=== PATIENT | male | born 1985 | race Caucasian/White ===

== ENCOUNTER 2021-03-01 08:00 | Outpatient (RCR) | payer OTHER, SELFPAY ==
--- NOTE | 2021-01-01 13:17 | PTOPEVAL ---
INITIAL PHYSICAL THERAPY EVALUATION and PLAN OF CARE Thank you for referring Rafael Cardona to [facility].? Rfaael is scheduled to be seen for physical therapy? 2x/week for [id number]/wk x 2 wks. Please review, sign, date and return this plan of care SOCORRO. I agree with and certify that the following plan of care is medically necessary. Referring Physician Date Admitting Provider: Attending Provider: Flower Casiano DO Referring Provider: DARBY Outpatient Evaluation Start: 01/01/21 10:11 Freq: Status: Active Protocol: Document 01/01/21 10:09 HARIS (Rec: 01/01/21 11:16 HARIS [id number]) Therapy Assessment Status Assessment Status Assessment Status Evaluation Outpatient Past Medical History Past Medical History Source of Past Medical History Patient Musculoskeletal History Hx Fractures Yes: L clavicle fractured at Evaluation Information Problem Diagnosis cervicalgia Onset July 2019 Subjective Information Initially would have nerve Query Text:As Reported By Patient/ type pain into L UE - triceps Family region - viewed You Tube video on how to floss nerve - those symptoms went away. Then later had discomfort into pectoralis, also into posterior scapular muscles. Now in the mornings - will have dull sensation around shoulder region - at times feels like shoulder is weak with trying to lift arm in abduction. Some days doesn't have any pain. Able to swim, lift weights without problems. No loss of strength or sensation. Diagnostic Tests X-Rays For This Problem Yes Prior Level of Function Activity Level (Last 3 Months) Occupation master craftsman Hand Dominance Right Medications Home Meds (Include: OTC, RX, Vitamins, denies any medication Herbals, Dose, Route,and Frequency) Query Text:Home Med Entries Will No Longer Recall From Past Visits. Home Meds Must Be Re-entered With Each Visit. Comments Additional Prior Level of Function recreation - read, languages - Comments study, occasional video games , exercising - has had to slow down to the L shoulder pain Pain Assessment Timing of Pain Assessment Timing of Pain Assessment Assessment Pain Scale Pain Scale Used
--- NOTE | 2021-01-20 12:18 | PTOPEVAL ---
PHYSICAL THERAPY RE-EVALUATION and UPDATED PLAN OF CARE Thank you for referring Rafael Cardona to [facility].? Rafael has done well in PT, but he is still having cervical dysfunction in regards to reduced L side bending as compared with R motion and occasional L shoulder discomfort. He wishes to continue with PT, and I am in agreement, once every other week for 2-3 more appointments. Please review, sign, date and return this plan of care SOCORRO. I agree with and certify that the following plan of care is medically necessary. Referring Physician Date Admitting Provider: Attending Provider: Flower Casiano DO Referring Provider: Therapy Assessment Status Assessment Status Assessment Status Re-evaluation Evaluation Information Problem Diagnosis cervicalgia Subjective Information Rafael reports neck feeling Query Text:As Reported By Patient/ okay. Occasional L anterior Family pectoralis/chest pain, also into L latissimus region - which is present after sleeping L side. He will also have occasional L scapular discomfort after increased physical activity. Pain Assessment Timing of Pain Assessment Timing of Pain Assessment Assessment Pain Scale Pain Scale Used Numeric (1 - 10) Self Report Pain Assessment Left Shoulder(s) Reported Pain Level 0 Lowest Pain Intensity 0 Greatest Pain Intensity 1 Cervical and Lumbar ROM Cervical ROM Cervical Flexion (0-60) 60 Query Text:Active in Degrees Cervical Extension (0-70) 65 Query Text:Active in Degrees Cervical Lateral Flexion Right (0-50) 45 Query Text:Active in Degrees Cervical Lateral Flexion Left (0-50) 35 Query Text:Active in Degrees Cervical Rotation Right (0-90) 72 Query Text:Active in Degrees Cervical Rotation Left (0-90) 74 Query Text:Active in Degrees Upper Extremity Range of Motion General Upper Extremity Range of Motion Gross Upper Extremity Range of Motion Active shoulder flexion, Comments abduction - symmetrical and WNL symmetrical scapulohumeral rhythm continues In supine - symmetrical ER and IR ROM Cervical and Lumbar Muscle Testing Cervical Muscle Testing Deep Cervical Flexion 52 sec PT Clinical Summary Clinical Summary Protocol: PTEVCODE PT Clinical Summary Neck Disability Index - 2% Rafael is making progress in PT - cervical ROM has increased in all directions except L side bending - still
--- NOTE | 2021-03-01 14:59 | PTOPEVAL ---
PHYSICAL THERAPY DISCHARGE SUMMARY Thank you for referring Rafael Cardona to [facility].? Rafael has been seen x 8 visits. He is doing well - cervical AROM is WNL with symmetrical side bending, improved spinal segmental mobility, very occasional L shoulder symptoms, increase with postural awareness with work activities, and independence with HEP. He is ready for d/c from PT. I agree with Rafael's discharge from PT. Referring Physician Date Admitting Provider: Attending Provider: Flower Casiano DO Referring Provider: Therapy Assessment Status Assessment Status Assessment Status Discharge Evaluation Information Problem Diagnosis cervicalgia Subjective Information Rafael reports that he did Query Text:As Reported By Patient/ well on his vacation, plane, Family carrying luggage, etc. On rare occasions will still have some L shoulder discomfort - anteriorly in pectoralis and along L scapular border. Lying on left side is going okay - will have some discomfort. Discussed how to sleep more comfortably on left side. Pain Assessment Timing of Pain Assessment Timing of Pain Assessment Pre-Treatment Self Report Self Report Pain Level 0 Cervical and Lumbar ROM Cervical ROM Cervical Flexion (0-60) 60 Query Text:Active in Degrees Cervical Extension (0-70) 65 Query Text:Active in Degrees Cervical Lateral Flexion Right (0-50) 45 Query Text:Active in Degrees Cervical Lateral Flexion Left (0-50) 50 Query Text:Active in Degrees Cervical Rotation Right (0-90) 72 Query Text:Active in Degrees Cervical Rotation Left (0-90) 74 Query Text:Active in Degrees Cervical and Lumbar Muscle Testing Cervical Muscle Testing Deep Cervical Flexion 1:18.06 Upper Extremity Muscle Strength Testing General Upper Extremity Strength Gross Upper Extremity Strength Comments L g-h jt - 90 deg ER, ~85 deg IR Palpation Assessment Palpation Palpation mild L anterior displacement with L humeral head as compared to R - but scapular levels are symmetrical mild decreased mobility with P -A glides C7 most restricted, lateral glides very slight decreased mobility C3 right to left symmetrical SC jt mobility, good L g-h jt capsular mobility PARAG C
== END 2021-03-02 15:19 | disposition home or self-care (01) ==
LOC: ANHHIPT 08:00
PROVIDERS: PCP Family Medicine; Visit Provider Family Medicine
DX: M54.2 Cervicalgia (principal)
CPT/HCPCS: 97110; 97140; 97162

== ENCOUNTER 2024-09-16 07:56 | Outpatient (CLI) | payer OTHER, SELFPAY ==
--- OUTSIDE RECORDS SUMMARY | 2024-09-16 08:02 | XMS_ITS | Clinical Summary ---
Author Organization [facility] Address Formerly [facility] [place] [address] Care Team Providers Care Improvement Leader Name Role Phone Luis Eduardo Kenny MD Primary Care Provider Bandar martinez Encounters Date Type Department Care Team Description 07/24/2024 7:44 AM SALON SUPERVISOR - 07/24/2024 11:59 PM SALON SUPERVISOR Hospital Encounter [facility] [place] [address] [place] [address] Jessica Hernandez FNP Discharge Disposition: Home or Self Care (Routine Discharge) 07/24/2024 Travel from Last 3 Months Immunizations Immunization Administration Dates Next Due MODERNA COVID-19 (12+) MRNA, LNP-S, PF, 100 MCG/ 0.5 ML DOSE 09/08/2020,08/11/2020 Social History Tobacco Use Types Packs/Day Years Used Date Smoking Tobacco: Never Assessed Sex and Gender Information Value Date Recorded Sex Assigned at Not on file Legal Sex Male 11:33 AM CDT Gender Identity Not on file Sexual Orientation Not on file Plan of Treatment Health Maintenance Due Date Last Done Comments Annual Physical 1989 Hepatitis C 2004 DTaP, Tdap and Td Vaccines ( 1 - Tdap) 2005 Hepatitis B Vaccines (1 of 3 - 19+ 3-dose series) 2005 COVID-19 Vaccine (2023-2 5 season) 2024 09/08/2020, 08/11/2020 HPV Vaccines Aged Out No longer eligi ble based on patient's age to complete this topic Meningococcal B Vaccine Aged Out No l onger eligible based on patient's age to complete this topic Meningococcal Vaccine Aged Out No karen kaity eligible based on patient's age to complete this topic Pneumococcal Vaccine: Pediatrics (0 to 5 Years) and At-Risk Patients (6 to 49 Years) Aged Out No longer eligible b ased on patient's age to complete this topic RSV Immunizations Under 20 Months Aged Out No longer eligible b ased on patient's age to complete this topic Procedures Procedure Name Priority Date/Time Associated Diagnosis Comments MRI BRAIN WO CON Routine 07/24/2024 8:54 AM SALON SUPERVISOR Right-sided tinnitus from Last 3 Months Results * MRI BRAIN WO CON (07/24/2024 8:54 AM SALON SUPERVISOR) Anatomical Region Laterality Modality Head Magnetic Resonan ce 07/25/2024 10:5 5 AM SALON SUPERVISOR Impressions 07/25/2024 11:01 AM SALON SUPERVISOR IMPRESSION: Unremarkable unenhanced MRI of the brain. Ordered By: JESSICA HERNANDEZ Interpreted By: Damon Martinez MD, 07/25/2024 10:55 AM Narrative 07/25/2024 11:01 AM SALON SUPERVISOR [place] [id number] [facility]. [place] [id number] Procedure(s): MRI BRAIN WO CON Date of service: 07/24/2024 7:58 AM Provided clinical information: 39 years, Male, RT SIDED TINNITUS Procedure and materials: Multiplanar multisequence mild the brain is performed. Examinations performed without the use of intravenous contrast. Comparison studies: None. Findings: Craniovertebral junction and cerebellopontine angle are clear. The visualized paranasal sinuses are relatively clear. Present cells. The flow voids of the proximal aspect of the major intracranial arteries are present. Diffusion images are unremarkable for acute or subacute ischemic changes. No evidence of thickening or the 7th cranial nerve. No evidence of mass present within the internal acoustic canal on the right or left. No evidence of midline shift. No evidence of mass effect is present. No suspicious T2 hyperintensities are present on the FLAIR sequence. Retrobulbar soft tissues are unremarkable. Procedure Note Damon Martinez MD - 07/25/2024 [facility] [address] [place] [address] Procedure(s): MRI BRAIN WO CON Date of service: 07/24/2024 7:58 AM Provided clinical information: 39 years, Male, RT SIDED TINNITUS Procedure and materials: Multiplanar multisequence mild the brain isperformed. Examinations performed without the use of intravenouscontrast. Comparison studies: None. Findings: Craniovertebral junction and cerebellopontine angle are clear. Thevisualized paranasal sinuses are relatively clear. Present cells. The flow voids of the proximal aspect of the major intracranial arteriesare present. Diffusion images are unremarkable for acute or subacuteischemic changes. No evidence of thickening or the 7th cranial nerve. Noevidence of mass present within the internal acoustic canal on the rightor left. No evidence of midline shift. No evidence of mass effect ispresent. No suspicious T2 hyperintensities are present on the FLAIR sequence. Retrobulbar soft tissues are unremarkable. IMPRESSION: Unremarkable unenhanced MRI of the brain. Ordered By: JESSICA HERNANDEZ Interpreted By: Damon Martinez MD, 07/25/2024 10:55 AM Jessica Hernandez TOP PRECIPITATOR OPERATOR HELPER MRI Final Resul t from Last 3 Months Insurance Care Teams Improvement Leader Relationship Specialty Start Date End Date Luis Eduardo Kenny MD PCP - General INTERNAL MEDICINE 11/18/19
--- OUTSIDE RECORDS SUMMARY | 2024-09-16 08:02 | XMS_ITS | Clinical Summary ---
Author Organization [facility] Address [address] [place] [address] Care Team Providers Care Piano Mechanic Name Role Phone Luis Eduardo Kenny MD Primary Care Provider [phone] Source Comments [facility]non-owned Affiliates and Associated Physician Practices is amultiple site organization consisting of ambulatory clinics and hospital sitesin [place], [place], [place] and [place]. This disclosure is being madepursuant to the Care Everywhere program and may not contain all information available regarding this patient. Last updated 18.[facility] Allergies No known active allergies Medications * Be aware that medications may not be up to date on this document. Alwaysverify current medications with the patient. No known medications Social History Tobacco Use Types Packs/Day Years Used Date Smoking Tobacco: Never Smokeless Tobacco: Never Alcohol Use Standard Drinks/Week Comments Yes 0 (1 standard drink = 0.6 oz pur e alcohol) socially Sex and Gender Information Value Date Recorded Sex Assigned at Not on file Legal Sex Male 11:03 AM LIGHT BULB REPLACER Gender Identity Not on file Sexual Orientation Not on file Last Filed Vital Signs Vital Sign Reading Time Taken Comments Blood Pressure 128/81 07/03/2020 9:08 AM LIGHT BULB REPLACER Pulse 84 07/03/2020 9:08 AM LIGHT BULB REPLACER Temperature 35.8 C (96.5 F) 07/03/2020 9:08 AM LIGHT BULB REPLACER Respiratory Rate - - Oxygen Saturation 98% 07/03/2020 9:08 AM LIGHT BULB REPLACER Inhaled Oxygen Concentration - - Weight 63.5 kg (140 lb) 07/03/2020 9:08 AM LIGHT BULB REPLACER Height 172.7 cm (5' 8 ) 07/03/2020 9:08 AM LIGHT BULB REPLACER Body Mass Index 21.29 07/03/2020 9:08 AM LIGHT BULB REPLACER Plan of Treatment Health Maintenance Due Date Last Done Comments HIV SCREENING 2001 HEPATITIS C SCREENING 03/09/2004 DTAP/TDAP/TD VACCINES (1 - Tdap) 2005 HEPATITIS B VACCINE (1 of 3 - 19+ 3-dose series) 2005 COVID-19 VACCINE (1 - 2023-2 5 season) 2024 DEPRESSION SCREENING 05/22/2024 INFLUENZA VACCINE (Season Ended) 2025 ZOSTER VACCINE (1 of 2) 2036 HIB VACCINE Aged Out No longer eligi ble based on patient's age to complete this topic HPV VACCINE Aged Out No longer eligi ble based on patient's age to complete this topic MENINGOCOCCAL (Group B) VACC INE SHARED DECISION-MAKING Aged Out No longer eligibl e based on patient's age to complete this topic MENINGOCOCCAL GROUPS A/C/Y/W VACCINE Aged Out No longer eligible b ased on patient's age to complete this topic PNEUMOCOCCAL VACCINE Aged Out No long er eligible based on patient's age [place] [address] Care Teams Piano Mechanic Relationship Specialty Start Date End Date Luis Eduardo Kenny MD [address] [place] [address] PCP - General 05/10/18
== END 2024-09-16 07:57 | disposition home or self-care (01) ==
LOC: ANHAUDIO 07:57
PROVIDERS: PCP Nurse Practitioner Family; Visit Provider Otolaryngology
DX: H93.11 Tinnitus, right ear (principal)
CPT/HCPCS: 92557; 92567